=== PATIENT | female | born 1930 | race Caucasian/White ===

== ENCOUNTER 2016-11-19 09:26 | Outpatient (CLI) ==
[2016-11-19 09:32] LABS: ADD URINE MICROSCOPIC NO; BILIRUBIN,URINE Negative (NEGATIVE); KETONES,URINE Negative (NEGATIVE); LEUKOCYTE ESTERASE ,URINE Negative (NEGATIVE); NITRITE,URINE Negative (NEGATIVE); PH,URINE 6.5 (5-9); PROTEIN,URINE Negative (NEGATIVE); URINE, BLOOD Negative (NEGATIVE)
== END 2016-11-19 09:27 | disposition home or self-care (01) ==
LOC: NONPT 09:26
PROVIDERS: ATTEND Family Medicine
DX: R30.0 Dysuria (principal); R35.0 Frequency of micturition
CPT/HCPCS: 81001

== ENCOUNTER 2018-06-27 09:54 | Emergency (ER) | payer OTHER ==
[2018-06-27 10:18] VITALS: BP 110/54; TEMP 98.3; BMI 20.9
--- NOTE | 2018-06-27 11:30 | CT ---
EXAM: CT head without contrast. HISTORY: Altered mental status. COMPARISON: None available. TECHNIQUE: Multiple axial images of the brain were obtained from the skull base through the vertex w ithout intravenous contrast. Multiplanar reformats were provided. FINDINGS: There is no intracranial hemorrhage or extraaxial collection. The martin-white differentiat ion is maintained without evidence for acute large vascular territory infarction. There are areas of periventricular and subcortical white matter low attenuation. The cortical sulci and cerebral ventr icles are symmetrically enlarged. The basal cisterns are well visualized. There is no hydrocephalus , mass effect, or midline shift. The paranasal sinuses and mastoid air cells are clear. The calvari um is intact. IMPRESSION: 1. No acute intracranial abnormality. 2. Chronic small vessel ischemic changes and atrophy.
--- NOTE | 2018-06-27 12:24 | ED.PDOC ---
General ED Provider: Dr. SOSA JAIMES Chief Complaint: Altered Mental Status Stated Complaint: ALTERED MENTAL STATUS Time Seen by Physician: 10:10 Information Source: Patient, Skilled Nursing, EMT Exam Limitations: No limitations Primary Care Provider: RIGOBERTO RANKIN Nursing and Triage Documentation Reviewed and Agree: Yes Does patient meet sepsis criteria?: No If yes, has appropriate treatment been initiated?: No (ARRIVED ALERT AND ORIENTATED NO NEURO DEFICITS) System Inflammatory Response Syndrome: Not Applicable Sepsis Protocol: For patient's 13 years and over: Temp is 96.8 and below OR 101 and greater Pulse >90 BPM Resp >20/minute Acutely Altered Mental Status Are patient's symptoms suggestive of a new infection, such as: -Pneumonia -Skin, Soft Tissue -Endocarditis -UTI -Bone, Joint Infection -Implantable Device -Acute Abdominal Infection -Wound Infection -Meningitis -Blood Stream Catheter Infection -Unknown Neurological Complaint Exam - Altered Mental Status Complaint/Exam Current Mental Status: Unresponsiveness (BUT UPON PRESENTATION WAS BACK TO NORMAL) Last Known Well: 1 DAY AGO Duration: FEW MIN Symptoms Are: Resolved Timing: Intermittent Episodes Lasting: Minutes Initial Severity: Mild Current Severity: None Eye Deviation Present: No Character: Reports: Responsiveness Aggravating: Reports: None Alleviating: Reports: Spontaneous resolution Associated Signs and Symptoms: Denies: Dizziness, Weakness, Headache, Fever, Illness, Nuchal rigidity, Seizure, Nausea, Vomiting, Recently depressed, Trauma Related History: Reports: Similar episode Cardiac Risk Factors: Reports: Hypertension CVA Risk Factors: Reports: Hypertension Related Surgical History: Reports: None Carotid Bruit Present: No Glascow Coma Scale (see protocol): 15 Nystagmus Present: No Gag Reflex Present: Yes Meningeal Signs Positive: No Focal Weakness: Present: None Focal Sensory Loss: Present: None [id number]: Normal Findings Babinski Sign: Negative Right, Negative Left Signs of Injury: Present: Normal findings Thrombolytics Considered: No Differential Diagnoses: Intracranial Bleed, Hypoglycemia, TIA, CVA Review of Systems - Review Of Systems Constitutional: Reports: No symptoms Eyes: Reports: No symptoms Ears, Nose, Mouth, Throat: Reports: No symptoms Respiratory: Reports: No symptoms Cardiac: Reports: No symptoms GI: Reports: No symptoms : Reports: No symptoms Musculoskeletal: Reports: No symptoms Skin: Reports: No symptoms Neurological: Reports: Cognitive dysfunction Endocrine: Reports: No symptoms Hematologic/Lymphatic: Reports: No symptoms All Other Systems: Reviewed and Negative Past Medical History - Past Medical History Previously Healthy: Yes Endocrine: Reports: Hypothyroid Cardiovascular: Reports: Hypertension Respiratory: Reports: None Hematological: Reports: None Gastrointestinal: Reports: None Genitourinary: Reports: None Neuro/Psych: Reports: None Musculoskeletal: Reports: None Cancer: Reports: None Last Menstrual Period: NA - Surgical History General Surgical History: Reports: None - Family History Family History: Reports: None - Social History Smoking Status: Never smoker Hx Substance Use: No Alcohol Screening: None Physical Exam - Physical Exam Appearance: Well-appearing, No pain distress, Well-nourished Eyes: ALEXX, EOMI, Conjunctiva clear ENT: Ears normal, Nose normal, Oropharynx normal Respiratory: Airway patent, Breath sounds clear, Breath sounds equal, Respirations nonlabored Cardiovascular: RRR, Pulses normal, No rub, No murmur GI/: Soft, Nontender, No masses, Bowel sounds normal, No Organomegaly Musculoskeletal: Normal strength, ROM intact, No edema, No calf tenderness Skin: Warm, Dry, Normal color Neurological: Sensation intact, Motor intact, Reflexes intact, Cranial nerves intact, Alert, Oriented Psychiatric: Affect appropriate, Mood appropriate Interpretation - Radiology Interpretation Radiology Interpretation By: Radiologist Radiology Results: No acute changes Exam Interpreted: CT Scan (OF THE BRAIN) Re-Evaluation - Re-Evaluation Time of Re-Evaluation: 11:00 Status: Improved Vital Signs Stable: Yes Pain Level: 0 Appearance: NAD Lungs: Clear Skin: Warm and Dry Neuro: Other (NEURO WNL NO DEFICITS) CV: RRR - Re-Evaluation Time of Re-Evaluation: 12:27 Status: Improved Vital Signs Stable: Yes Pain Level: 0 Appearance: NAD Skin: Warm and Dry Neuro: Alert and Oriented X3 CV: RRR Physician Notification - Case Discussed Physician Notified: PMD Time of Notification: 13:04 (PLACE [facility]OLTER AND D/C ) Critical Care Note - Critical Care Note Total Time (mins): 0 Course - Course Hematology/Chemistry: 06/27/18 10:15 06/27/18 10:15 Orders, Labs, Meds: Lab Review 06/27/18 06/27/18 06/27/18 10:15 10:15 12:30 WBC 6.12 RBC 4.44 Hgb 11.6 L Hct 36.8 L MCV 82.9 MCH 26.1 L MCHC 31.5 L RDW Coeff of Ez 14.0 Plt Count 244 Immature Gran % (Auto) 0.3 Neut % (Auto) 73.3 Lymph % (Auto) 20.1 Wilcox % (Auto) 4.9 Eos % (Auto) 1.1 Baso % (Auto) 0.3 Immature Gran # (Auto) 0.0 Neut # (Auto) 4.5 Lymph # (Auto) 1.2 Wilcox # (Auto) 0.3 L Eos # (Auto) 0.1 Baso # (Auto) 0.0 Sodium 136 L Potassium 3.9 Chloride 99 Carbon Dioxide 32 H Anion Gap 8.9 BUN 16 Creatinine 1.27 Estimated GFR (MDRD) 40.00 BUN/Creatinine Ratio 12.59 Glucose 100 Calcium 9.6 Total Bilirubin 0.7 AST 21 ALT 10 Alkaline Phosphatase 65 Total Creatine Kinase < 20 L Troponin I < 0.012 Total Protein 6.5 Albumin 3.5 Globulin 3.0 Albumin/Globulin Ratio 1.17 Urine Color Yellow Urine Clarity Clear Urine pH 6.0 Ur Specific [place] 1.015 Urine Protein Negative Urine Glucose (UA) Negative Urine Ketones Negative Urine Blood Negative Urine Nitrite Negative Urine Bilirubin Negative Urine Urobilinogen 0.2 Ur Leukocyte Esterase Trace Urine Microscopic RBC 0-2 Urine Microscopic WBC 0-2 Ur Squamous Epith Cells 0-2 Urine Bacteria Trace Hyaline Casts 0-2 Orders Category Date Time Status EKG-(ED ONLY) Stat CARDIO 06/27/18 10:05 Completed CBC W/ AUTO DIFF Stat LAB 06/27/18 10:15 Completed COMPREHENSIVE METABOLIC PANEL Stat LAB 06/27/18 10:15 Completed CREATINE KINASE Stat LAB 06/27/18 10:15 Completed TROPONIN I Stat LAB 06/27/18 10:15 Completed URINALYSIS C & S IF INDICATED Stat LAB 06/27/18 12:[address] HEAD W/O CONTRAST Stat RADS 06/27/18 10:05 Completed Vital Signs: Temp Pulse Resp BP Pulse Ox 06/27/18 10:04 98.3 F 66 16 110/54 L 96 Departure - Departure Time of Disposition: 12:26 Disposition: HOME SELF-CARE Discharge Problem: Altered mental status Instructions: Altered Mental Status (ED) Condition: Good Pt referred to PMD for follow-up: Yes IPMP verified?: No Additional Instructions: Please call your Family Physician as soon as possible to schedule a follow-up appointment. Allergies/Adverse Reactions: Allergies memantine [From Namenda] Adverse Reaction (Verified 06/27/18 10:03) Penicillins Adverse Reaction (Verified 06/27/18 10:03) Sulfa (Sulfonamide Antibiotics) Adverse Reaction (Verified 06/27/18 10:03) Home Medications: Ambulatory Orders Acetaminophen [Tylenol] 2 tab PO Q4H PRN 06/27/18 Amlodipine Besylate 2.5 mg PO DAILY 06/27/18 Aspirin 81 mg PO DAILY 06/27/18 Cholecalciferol (Vitamin D3) [Vitamin D3] 1,000 unit PO DAILY 06/27/18 Donepezil HCl [Aricept] 23 mg PO DAILY 06/27/18 Levothyroxine Sodium 25 mcg PO DAILY 06/27/18 Losartan/Hydrochlorothiazide [Losartan-Hctz 100-12.5 mg Tab] 0.5 tab PO DAILY Magnesium Hydroxide [Milk of Magnesia] 30 ml PO BID PRN 06/27/18 Multivitamin with Minerals [Multiple Vitamin] 1 each PO DAILY 06/27/18
--- NOTE | 2018-06-29 11:11 | HOLTER ---
PATIENT INFORMATION AND COMMENTS Attending Physician: DR. RIGOBERTO RANKIN Indications: BRADYCARDIA __ Patient Medications: TYLENOL, AMLODIPINE, ASA, ARICEPT, LEVOTHYROXINE, LOSARTAN __ Pre-procedure Summary: Protocol: Standard Heart Rate Started: 06/27/18 1346 Minimum: 41 BPM Weight: 118 BPM Ended: 06/28/18 1346 Maximum: 154 BPM Height: 63" Duration: 24 HOURS Average: 59 BPM _ INTERPRETATIONS/OBSERVATIONS: 1. BASIC RHYTHM: SINUS BRADYCARDIA, 41 BPM TO 150 BPM, AVERAGE 60 BPM 2. INFREQUENT PVC'S AND PAC'S 3. THREE TO FOUR SHORT RUNS OF SUPRAVENTRICULAR TACHYCARDIA, FOUR TO SEVEN BEATS IN A ROW. NO ST-T WAVE CHANGES FROM BASELINE 4. ACTIVITY LOG NOT AVAILABLE MTDD
== END 2018-06-27 14:16 | disposition home or self-care (01) ==
LOC: ED 09:54
DX: R41.82 Altered mental status, unspecified (principal); I10 Essential (primary) hypertension; E03.9 Hypothyroidism, unspecified; Z79.899 Other long term (current) drug therapy
CPT/HCPCS: 36415; 80053; 81001; 82550; 84484; 85025; 93005; 93010; 99283

== ENCOUNTER 2018-07-09 10:20 | Outpatient (CLI) | END 2018-07-09 10:21 | disposition home or self-care (01) | LOC: AMBL 10:20 | PROVIDERS: ATTEND Internal Medicine Geriatric Medicine | DX: S05.12XA Contusion of eyeball and orbital tissues, left eye, initial encounter (principal); S00.83XA Contusion of other part of head, initial encounter; R51 Headache; R04.0 Epistaxis; K92.0 Hematemesis; F03.90 Unspecified dementia, unspecified severity, without behavioral disturbance, psychotic disturbance, mood disturbance, and anxiety; W19.XXXA Unspecified fall, initial encounter; Y92.129 Unspecified place in nursing home as the place of occurrence of the external cause ==

== ENCOUNTER 2018-07-09 21:40 | Outpatient (CLI) | END 2018-07-09 22:01 | LOC: AMBL 21:40 | PROVIDERS: ATTEND Internal Medicine Geriatric Medicine | DX: Z98.890 Other specified postprocedural states (principal); R41.0 Disorientation, unspecified ==

== ENCOUNTER 2018-08-16 17:21 | Outpatient (CLI) | END 2018-08-16 18:15 | disposition short-term general hospital (02) | LOC: AMBL 17:21 | PROVIDERS: ATTEND Emergency Medicine | DX: R41.82 Altered mental status, unspecified (principal); R45.6 Violent behavior ==